=== PATIENT | male | born 1935 | race Caucasian/White ===

== ENCOUNTER 2018-03-07 15:42 | Inpatient (IN) | payer MEDICARE ==
[~2018-03-07] VITALS: Ht 167.6 cm; Wt 60.3 kg
[~2018-03-07 15:42] MED LIST: AMLO10TA4 PO; ASPI81TA52 PO; CLOP75TA35 PO; IBUP-1984 PO; PRAV40TA3 PO
[2018-03-07] MEDS ORDERED: aspirin 81mg tab.chew PO ONE (16:15)
[2018-03-07] MEDS ORDERED: normal saline 1000ML IV soln IVB ONE (16:15)
[2018-03-07] MEDS ORDERED: nitroGLYCERIN 0.4mg/hour patch TD ONE (16:15)
[2018-03-07 16:42] LABS: BASOPHILS % (AUTO) 0.4 % (0-1); EOSINOPHILS # (AUTO) 0.2 X10'3 (0-0.9); EOSINOPHILS % (AUTO) 1.9 % (0-6); HEMATOCRIT 42.1 % (42.0-52.0); HEMOGLOBIN 13.7 g/dl (14.0-17.9); LYMPHOCYTES # (AUTO) 1.2 X10'3 (1.1-4.8); MEAN CORPUSCULAR HEMOGLOBIN 29.7 PG (27.0-31.0); MEAN CORPUSCULAR HGB CONC 32.6 % (33.0-36.5); MEAN CORPUSCULAR VOLUME 91.2 FL (78-98); MEAN PLATELET VOLUME 7.4 FL (7.4-10.4); MONOCYTES # (AUTO) 0.3 X10'3 (0-0.9); MONOCYTES % (AUTO) 3.7 % (2-12); NEUTROPHILS # (AUTO) 6.9 X10'3 (1.8-7.7); PLATELET COUNT 270 X10'3 (140-440); RED BLOOD COUNT 4.62 X10'6 (4.70-6.10); RED CELL DISTRIBUTION WIDTH 13.9 % (11.5-14.5); WHITE BLOOD COUNT 8.6 X10'3 (4.5-11.0)
[2018-03-07 16:57] LABS: PARTIAL THROMBOPLASTIN TIME 28 SECONDS (22-32); PROTHROMBIN TIME 10.3 SECONDS (9.0-12.0)
[2018-03-07 16:58] LABS: ALANINE AMINOTRANSFERASE 18 U/L (12-78); ALBUMIN/GLOBULIN RATIO 1.1 (1.1-1.5); ALKALINE PHOSPHATASE 97 IU/L (46-116); ANION GAP 12 (8-16); ASPARTATE AMINO TRANSFERASE 16 U/L (10-37); BILIRUBIN,TOTAL 0.6 MG/DL (0.1-1.0); BLOOD UREA NITROGEN 21 MG/DL (7-18); BUN/CREATININE RATIO 18.6 (5.4-32.0); CALCIUM 8.9 MG/DL (8.5-10.1); CHLORIDE 102 MMOL/L (99-107); CREATININE 1.13 MG/DL (0.60-1.10); GLUCOSE 97 MG/DL (70-104); POTASSIUM 3.7 MMOL/L (3.5-5.1); SODIUM 141 MMOL/L (135-145); TOTAL CARBON DIOXIDE 27.5 MMOL/L (24-32); TOTAL PROTEIN 7.5 G/DL (6.4-8.2); eGFR 62 ML/MIN
[2018-03-07] MEDS ORDERED: acetaminophen 325mg tablet PO PRN (18:00)
[2018-03-07] MEDS ORDERED: morphine 4 MG/ML inj SYRINge IV PRN ×2 (18:00)
[2018-03-07] MEDS ORDERED: enoxaparin 60mg/0.6ml syringe SUBCUT STA (18:00)
[2018-03-07] MEDS ORDERED: ondansetron/PF 4mg/2ml inj IV PRN (18:00)
[2018-03-07] MEDS ORDERED: HYDROcodone/acetaminophen 5mg/325mg tablet PO PRN (18:00)
[2018-03-07] MEDS ORDERED: mag hydrox/Alum hydrox/simeth 30ml oral suspension PO PRN (18:00)
[2018-03-07] MEDS ORDERED: magnesium hydroxide 30ml (MOM) UD suspension PO PRN (18:00)
[2018-03-07] MEDS ORDERED: nitroGLYCERIN 0.4mg SUBLingual tab SL PRN (18:00)
--- NOTE | 2018-03-07 18:57 | NUR ---
REPORT CALLED TO JINA ON TELE, PT BELONGS WILL BE KEPT WITH PT.
[2018-03-07 19:00] VITALS: BP 135/56
--- NOTE | 2018-03-07 19:05 | NUR ---
Patient in room PCU 3023. I have received report from Carlos CLAUDIO and had the opportunity to ask questions and assume patient care.
[2018-03-07 19:50] LABS: HEMOGLOBIN A1C 5.7 % (4.5-6.2)
[2018-03-07 23:00] VITALS: BP 108/56
[2018-03-08] VITALS (14 sets, daily range): BP systolic 92–140; BP diastolic 47–67
[2018-03-08 05:19] LABS: BASOPHILS % (AUTO) 0.8 % (0-1); EOSINOPHILS # (AUTO) 0.2 X10'3 (0-0.9); EOSINOPHILS % (AUTO) 3.7 % (0-6); HEMATOCRIT 32.8 % (42.0-52.0); HEMOGLOBIN 11.2 g/dl (14.0-17.9); LYMPHOCYTES # (AUTO) 1.6 X10'3 (1.1-4.8); LYMPHOCYTES % (AUTO) 25.7 % (21-51); MEAN CORPUSCULAR HEMOGLOBIN 31.4 PG (27.0-31.0); MEAN CORPUSCULAR HGB CONC 34.3 % (33.0-36.5); MEAN CORPUSCULAR VOLUME 91.7 FL (78-98); MEAN PLATELET VOLUME 7.7 FL (7.4-10.4); MONOCYTES # (AUTO) 0.4 X10'3 (0-0.9); MONOCYTES % (AUTO) 5.8 % (2-12); NEUTROPHILS # (AUTO) 3.9 X10'3 (1.8-7.7); PLATELET COUNT 204 X10'3 (140-440); RED BLOOD COUNT 3.58 X10'6 (4.70-6.10); WHITE BLOOD COUNT 6.1 X10'3 (4.5-11.0)
[2018-03-08 05:23] LABS: ANION GAP 12 (8-16); BLOOD UREA NITROGEN 17 MG/DL (7-18); CALCIUM 7.9 MG/DL (8.5-10.1); CHLORIDE 105 MMOL/L (99-107); CHOL/HDL RATIO 3.5 (0.00-4.99); CHOLESTEROL 139 MG/DL (0-200); CREATININE 1.13 MG/DL (0.60-1.10); GLUCOSE 89 MG/DL (70-104); HDL CHOLESTEROL 40 MG/DL (35-60); LDL CHOLESTEROL 89 MG/DL (50-100); POTASSIUM 3.8 MMOL/L (3.5-5.1); SODIUM 142 MMOL/L (135-145); TOTAL CARBON DIOXIDE 24.9 MMOL/L (24-32); TRIGLYCERIDES 73 MG/DL (20-135); eGFR 62 ML/MIN
--- NOTE | 2018-03-08 06:24 | NUR ---
Problems reprioritized. Patient report given, questions answered & plan of care reviewed with DREW Vega.
--- NOTE | 2018-03-08 06:42 | NUR ---
Patient in room PCU 3023. I have received report from DREW MURO and had the opportunity to ask questions and assume patient care.
[2018-03-08] MEDS ORDERED: atorvastatin 20mg tablet PO SCH (08:00)
[2018-03-08] MEDS: aspirin 81mg tablet.DR PO SCH (08:25)
[2018-03-08] MEDS ORDERED: LIDOcaine 1% (10mg/ml)w/preservative injection 20ml MDV ONE (08:42)
[2018-03-08] MEDS ORDERED: iohexol 350MG/ML 100ml bottle IV ONE (08:42)
[2018-03-08] MEDS ORDERED: midazolam 2 mg/2 ml injection ONE (09:03)
[2018-03-08] MEDS ORDERED: LIDOcaine 1% w/EPI 1:100,000 30ml vial (MDV) ONE (09:18)
[2018-03-08] MEDS ORDERED: fentaNYL/PF 50MCG/1 ML 2ML syringe ONE (09:21)
[2018-03-08] MEDS ORDERED: dextrose 50%-water 50ml dispensing syringe IV PRN (10:45)
[2018-03-08] MEDS ORDERED: MESSAGE TO NURSING PO ONE ×4 (10:45)
--- NOTE | 2018-03-08 10:54 | NUR ---
PAGED RT : 0000Y, HAVE 2 ORDERS TO PAGE RT R/T PENDING CABG. MARILYN [id number]. TY
--- NOTE | 2018-03-08 10:57 | NUR ---
ATTEMPT TO PAGE MENDED HEARTS FOR CONS. NO PAGER AVAILABLE, ANSON WILSON RN STATES"THEY ROUND EVERY DAY. WILL SEE HIM TOMORROW.
[2018-03-08] MEDS ORDERED: nitroGLYCERIN-Tridil 50MG/D5W 250 ML IV PRN (11:20)
[2018-03-08 12:13] LABS: HEMATOCRIT 36.2 % (42.0-52.0); HEMOGLOBIN 12.2 g/dl (14.0-17.9); MEAN CORPUSCULAR HEMOGLOBIN 30.8 PG (27.0-31.0); MEAN CORPUSCULAR HGB CONC 33.8 % (33.0-36.5); MEAN CORPUSCULAR VOLUME 91.3 FL (78-98); MEAN PLATELET VOLUME 7.4 FL (7.4-10.4); PLATELET COUNT 228 X10'3 (140-440); RED BLOOD COUNT 3.97 X10'6 (4.70-6.10); WHITE BLOOD COUNT 5.7 X10'3 (4.5-11.0)
[2018-03-08 12:14] LABS: ALBUMIN 3.2 G/DL (3.4-5.0); ANION GAP 12 (8-16); BLOOD UREA NITROGEN 15 MG/DL (7-18); BUN/CREATININE RATIO 13.8 (5.4-32.0); CALCIUM 7.9 MG/DL (8.5-10.1); CHLORIDE 104 MMOL/L (99-107); CREATININE 1.09 MG/DL (0.60-1.10); GLUCOSE 90 MG/DL (70-104); POTASSIUM 3.6 MMOL/L (3.5-5.1); SODIUM 140 MMOL/L (135-145); TOTAL CARBON DIOXIDE 23.6 MMOL/L (24-32); eGFR 65 ML/MIN
[2018-03-08 12:24] LABS: INR 1.1 INR; PARTIAL THROMBOPLASTIN TIME 30 SECONDS (22-32); PROTHROMBIN TIME 10.9 SECONDS (9.0-12.0)
--- NOTE | 2018-03-08 12:38 | NUR ---
RECEIEVED FROM [facility]IA [employer] ANT 1000. BILAT GROIN DRESSING CDI WITH OUT SX OF HEMATOMA OR HEMORRHAGE. VS STABLE. PEDAL PULSES PALPABLE. DENIES PAIN, SOB, DIZZINESS. GROINS CHECK EVERY 15 MINUTES.
[2018-03-08 16:51] LABS: ABG BASE EXCESS -0.7 mmol/L (-2.0-3.0); ABG HCO3 22.7 mmol/L (22.0-26.0); ABG OXYGEN SATURATION 94.4 % (95-98); ABG PCO2 (T) 33.2 mmHg (35.0-48.0); ABG PH (T) 7.452 (7.350-7.450); ABG PO2 (T) 69.3 mmHg (83-108); FCOHb 0.3 % (0.5-1.5); FMetHb 0.2 % (0.3-1.12); FO2Hb 93.9 % (94-100); TOTAL HEMOGLOBIN 11.8 G/dl (14.0-18.0)
[2018-03-08] MEDS ORDERED: albuterol 2.5 MG/3 ML nebule ONE (17:01)
[2018-03-08] MEDS ORDERED: albuterol 2.5 MG/3 ML nebule NEB ONE (17:01)
--- NOTE | 2018-03-08 17:07 | NUR ---
PAGED VASCULAR, RE: NEED ARTERY/VEIN MAPPING.
--- NOTE | 2018-03-08 18:00 | NUR ---
Patient in room PCU 3023. I have received report from DREW Vega and had the opportunity to ask questions and assume patient care.
--- NOTE | 2018-03-08 18:39 | NUR ---
Problems reprioritized. Patient report given, questions answered & plan of care reviewed with DREW MURO.
[2018-03-09] VITALS (11 sets, daily range): BP systolic 104–143; BP diastolic 46–65
[2018-03-09 04:59] LABS: ALBUMIN 2.9 G/DL (3.4-5.0); ANION GAP 9 (8-16); BLOOD UREA NITROGEN 15 MG/DL (7-18); BUN/CREATININE RATIO 12.3 (5.4-32.0); CALCIUM 7.6 MG/DL (8.5-10.1); CHLORIDE 106 MMOL/L (99-107); CREATININE 1.22 MG/DL (0.60-1.10); GLUCOSE 96 MG/DL (70-104); POTASSIUM 3.6 MMOL/L (3.5-5.1); SODIUM 139 MMOL/L (135-145); TOTAL CARBON DIOXIDE 23.9 MMOL/L (24-32); eGFR 57 ML/MIN
[2018-03-09 05:06] LABS: BASOPHILS % (AUTO) 0.5 % (0-1); EOSINOPHILS # (AUTO) 0.3 X10'3 (0-0.9); EOSINOPHILS % (AUTO) 4.3 % (0-6); HEMATOCRIT 31.4 % (42.0-52.0); HEMOGLOBIN 10.9 g/dl (14.0-17.9); LYMPHOCYTES # (AUTO) 1.5 X10'3 (1.1-4.8); LYMPHOCYTES % (AUTO) 21.3 % (21-51); MEAN CORPUSCULAR HEMOGLOBIN 31.8 PG (27.0-31.0); MEAN CORPUSCULAR HGB CONC 34.7 % (33.0-36.5); MEAN CORPUSCULAR VOLUME 91.6 FL (78-98); MEAN PLATELET VOLUME 7.7 FL (7.4-10.4); MONOCYTES # (AUTO) 0.4 X10'3 (0-0.9); MONOCYTES % (AUTO) 5.5 % (2-12); NEUTROPHILS % (AUTO) 68.4 % (42-75); PLATELET COUNT 207 X10'3 (140-440); RED BLOOD COUNT 3.42 X10'6 (4.70-6.10); RED CELL DISTRIBUTION WIDTH 13.9 % (11.5-14.5); WHITE BLOOD COUNT 7.2 X10'3 (4.5-11.0)
[2018-03-09] MEDS ORDERED: vancomycin/NS 1 GM ADD-VANTAGE 250 ML IV ONE (05:30)
[2018-03-09] MEDS ORDERED: cefazolin/dext.iso 2gm/50ml 50 ML IV ONE (05:30)
[2018-03-09] MEDS ORDERED: mupirocin 2% ointment 22GM NS SCH (05:30)
[2018-03-09] MEDS ORDERED: insulin glargine (Lantus) pen - multi-dose SQ PRN (05:30)
[2018-03-09] MEDS ORDERED: insulin regular, human 100 UNIT in normal saline 100ml IV soln 100 ML IV SCH ×2 (05:30)
--- NOTE | 2018-03-09 06:20 | NUR ---
Patient in room PCU 3023. I have received report from Mackenzie RUSSELL and had the opportunity to ask questions and assume patient care. Pt is on nitro drip 10 mcg/min and on bedside mobile., vital signs are stable and pt denies chest pain at this time. Will continue to monitor.
[2018-03-09 06:28] LABS: INR 1.1 INR; PROTHROMBIN TIME 10.7 SECONDS (9.0-12.0)
--- NOTE | 2018-03-09 06:44 | NUR ---
Problems reprioritized. Patient report given, questions answered & plan of care reviewed with DREW Roberts.
[2018-03-09] MEDS: aspirin 81mg tablet.DR PO SCH (08:16)
[2018-03-09] MEDS ORDERED: insulin Lispro (HumaLOG) vial - multi-dose SQ SCH (09:00)
[2018-03-09] MEDS ORDERED: MESSAGE TO NURSING PO ONE (10:00)
[2018-03-09] MEDS ORDERED: ringers solution, lacted 1,000 ML IV ONE (17:17)
--- NOTE | 2018-03-09 18:22 | NUR ---
Problems reprioritized. Patient report given, questions answered & plan of care reviewed with Seferino RUSSELL.
--- NOTE | 2018-03-09 19:00 | NUR ---
Patient in room PCU 3023. I have received report from Alejandra RUSSELL and had the opportunity to ask questions and assume patient care.
[2018-03-09] MEDS: metoprolol tartrate 12.5mg (1/2 tablet) PO SCH ×2 (19:48→20:00)
[2018-03-09] MEDS: mupirocin 2% nasal ointment 1gm UD NS SCH (20:00)
--- NOTE | 2018-03-09 22:16 | NUR ---
CABG meds retimed/adjusted. Proceedure postponed.
[2018-03-10] VITALS (17 sets, daily range): BP systolic 102–130; BP diastolic 48–65
[2018-03-10] MEDS ORDERED: cefazolin/dext.iso 2gm/50ml 50 ML IV ONE (05:00)
[2018-03-10] MEDS: insulin regular, human 100 UNIT in normal saline 100ml IV soln 100 ML IV SCH ×2 (05:00)
[2018-03-10] MEDS ORDERED: vancomycin/NS 1 GM ADD-VANTAGE 250 ML IV ONE (05:00)
[2018-03-10] MEDS ORDERED: LORazepam 2 mg/ml vial IV ONE (06:00)
[2018-03-10] MEDS ORDERED: famotidine 20mg tablet PO ONE (06:00)
[2018-03-10 06:24] LABS: BASOPHILS # (AUTO) 0.1 X10'3 (0-0.2); BASOPHILS % (AUTO) 0.8 % (0-1); EOSINOPHILS # (AUTO) 0.4 X10'3 (0-0.9); EOSINOPHILS % (AUTO) 6.1 % (0-6); HEMATOCRIT 37.3 % (42.0-52.0); HEMOGLOBIN 12.7 g/dl (14.0-17.9); LYMPHOCYTES # (AUTO) 1.6 X10'3 (1.1-4.8); LYMPHOCYTES % (AUTO) 26.2 % (21-51); MEAN CORPUSCULAR HEMOGLOBIN 31.1 PG (27.0-31.0); MEAN CORPUSCULAR HGB CONC 34.1 % (33.0-36.5); MEAN CORPUSCULAR VOLUME 91.3 FL (78-98); MEAN PLATELET VOLUME 7.7 FL (7.4-10.4); MONOCYTES # (AUTO) 0.4 X10'3 (0-0.9); MONOCYTES % (AUTO) 6.3 % (2-12); NEUTROPHILS # (AUTO) 3.8 X10'3 (1.8-7.7); NEUTROPHILS % (AUTO) 60.6 % (42-75); PLATELET COUNT 223 X10'3 (140-440); RED BLOOD COUNT 4.09 X10'6 (4.70-6.10); RED CELL DISTRIBUTION WIDTH 13.5 % (11.5-14.5); WHITE BLOOD COUNT 6.3 X10'3 (4.5-11.0)
--- NOTE | 2018-03-10 06:28 | NUR ---
Problems reprioritized. Patient report given, questions answered & plan of care reviewed with Alejandra RUSSELL.
[2018-03-10 06:38] LABS: ALBUMIN 3.2 G/DL (3.4-5.0); ANION GAP 11 (8-16); BLOOD UREA NITROGEN 16 MG/DL (7-18); BUN/CREATININE RATIO 16.3 (5.4-32.0); CALCIUM 8.1 MG/DL (8.5-10.1); CHLORIDE 105 MMOL/L (99-107); CREATININE 0.98 MG/DL (0.60-1.10); GLUCOSE 94 MG/DL (70-104); POTASSIUM 3.6 MMOL/L (3.5-5.1); SODIUM 138 MMOL/L (135-145); TOTAL CARBON DIOXIDE 21.8 MMOL/L (24-32); eGFR 73 ML/MIN
[2018-03-10] MEDS: metoprolol tartrate 12.5mg (1/2 tablet) PO SCH (06:42)
[2018-03-10] MEDS ORDERED: protamine sulf. 10mg/ml inj. IV ONE (06:43)
[2018-03-10] MEDS ORDERED: DOPamine/D5W 400mg/250ml bag IV ONE (06:43)
[2018-03-10] MEDS: mupirocin 2% nasal ointment 1gm UD NS SCH ×2 (06:43→21:48)
[2018-03-10] MEDS ORDERED: nitroGLYCERIN in D5W 50mg/250ml (Tridil) infusion IV ONE (06:43)
[2018-03-10] MEDS ORDERED: sevoflurane 250ml liquid IH ONE (06:43)
[2018-03-10] MEDS ORDERED: aminocaproic acid 250 MG/1 ML inj. ONE ×2 (06:43→09:00)
--- NOTE | 2018-03-10 06:48 | NUR ---
Patient in room PCU 3023. I have received report from Seferino RUSSELL and had the opportunity to ask questions and assume patient care. Pt just went to OR.
[2018-03-10] MEDS ORDERED: MIDAZolam 1mg/ml 10ml vial ONE (06:50)
[2018-03-10] MEDS ORDERED: SUfentanil 50mcg/ml 1ml amp IV ONE (06:51)
[2018-03-10] MEDS ORDERED: fentaNYL /PF 50mcg/ml 5ml ampule ONE ×2 (06:52→08:25)
[2018-03-10] MEDS ORDERED: pancuronium br 1mg/ml inj IV ONE (06:52)
[2018-03-10] MEDS ORDERED: etomidate 2mg/ml inj. ONE (06:53)
[2018-03-10] MEDS ORDERED: albumin (Human) 5% 250ml 250 ML IV ONE ×3 (07:18→12:20)
[2018-03-10 07:30] LABS: ABG BASE EXCESS -4.3 mmol/L (-2.0-3.0); ABG HCO3 20.6 mmol/L (22.0-26.0); ABG OXYGEN SATURATION 99.2 % (95-98); ABG PCO2 36.8 mmHg (35.0-45.0); ABG PH 7.365 (7.350-7.450); ABG PO2 366.3 mmHg (60.0-100.0); CL (ABG) 109 mmol/L (99-107); FCOHb 0.1 % (0.5-1.5); FMetHb 0.4 % (0.3-1.12); FO2Hb 98.7 % (94-100); GLUCOSE (ABG) 102 mg/dl (70-105); K (ABG) 3.6 mmol/L (3.3-5.1); NA (ABG) 135 mmol/L (135-145); TOTAL HEMOGLOBIN 11.2 G/dl (14.0-18.0)
[2018-03-10] MEDS ORDERED: heparin 10,000 units/1 ML INJ IR ONE (07:59)
[2018-03-10] MEDS ORDERED: insulin glargine (Lantus) pen - multi-dose SQ PRN (08:00)
[2018-03-10] MEDS: aspirin 81mg tablet.DR PO SCH (08:00)
[2018-03-10] MEDS ORDERED: papaverine 30 mg/ml 2ml inj. IA ONE (08:00)
[2018-03-10 08:31] LABS: ACT @ 1.70 U 329 SEC (193-297); ACT @ 2.84 U 491 SEC (260-420); BASELINE ACT 151 SEC (101-148); PATIENT WEIGHT 61.0k KG
[2018-03-10 08:31] LABS: ABG BASE EXCESS VENOUS -6.4 mmol/L; ABG HCO3 VENOUS 21.5 mmol/L; ABG PCO2 VENOUS 54.5 mmHg; ABG PO2 VENOUS 57.3 mmHg; CL (ABG) 108 mmol/L (99-107); FCOHb VENOUS 0.3 %; FHHb VENOUS 14.8 %; FMetHb VENOUS 0.1 %; FO2Hb VENOUS 84.8 %; GLUCOSE (ABG) 107 mg/dl (70-105); IONIZED CA (ABG) 1.09 mmol/L (1.03-1.32); K (ABG) 3.8 mmol/L (3.3-5.1); NA (ABG) 134 mmol/L (135-145); TOTAL HEMOGLOBIN 10.1 G/dl (14.0-18.0)
[2018-03-10 08:56] LABS: ABG BASE EXCESS -2.7 mmol/L (-2.0-3.0); ABG HCO3 23.3 mmol/L (22.0-26.0); ABG OXYGEN SATURATION 99.6 % (95-98); ABG PCO2 46.1 mmHg (35.0-45.0); ABG PH 7.322 (7.350-7.450); ABG PO2 563.6 mmHg (60.0-100.0); CL (ABG) 107 mmol/L (99-107); FCOHb 0.6 % (0.5-1.5); FMetHb 0.1 % (0.3-1.12); FO2Hb 98.9 % (94-100); GLUCOSE (ABG) 118 mg/dl (70-105); K (ABG) 4.2 mmol/L (3.3-5.1); NA (ABG) 132 mmol/L (135-145); TOTAL HEMOGLOBIN 8.8 G/dl (14.0-18.0)
[2018-03-10] MEDS ORDERED: LIDOcaine 2% (20 mg/ml) 5ml cardiac syringe ONE (09:00)
[2018-03-10] MEDS ORDERED: calcium chloride 100 MG/1 ML inj IV ONE (09:00)
[2018-03-10] MEDS ORDERED: albumin 25% 50mL bottle IV ONE (09:00)
[2018-03-10] MEDS ORDERED: heparin 1,000 units/ml 10ml inj ONE ×2 (09:00)
[2018-03-10] MEDS ORDERED: magnesium sulf 1 GM/2 ML ONE (09:00)
[2018-03-10] MEDS ORDERED: papaverine 30 mg/ml 2ml inj. ONE (09:00)
[2018-03-10] MEDS ORDERED: methylPREDNISolone sod. succ. 500mg inj ONE (09:00)
[2018-03-10] MEDS ORDERED: sodium bicarbonate (8.4%) 1 mEq/ml syringe ONE (09:00)
[2018-03-10] MEDS ORDERED: potassium Cl 2 mEq/ml inj IV ONE (09:00)
[2018-03-10 09:16] LABS: ABG HCO3 VENOUS 20.8 mmol/L; ABG PCO2 VENOUS 41.6 mmHg; ABG PO2 VENOUS 119.2 mmHg; CL (ABG) 107 mmol/L (99-107); FCOHb VENOUS 0.2 %; FHHb VENOUS 2.4 %; FMetHb VENOUS 0.2 %; FO2Hb VENOUS 97.2 %; GLUCOSE (ABG) 135 mg/dl (70-105); IONIZED CA (ABG) 1.04 mmol/L (1.03-1.32); K (ABG) 5.2 mmol/L (3.3-5.1); NA (ABG) 132 mmol/L (135-145); TOTAL HEMOGLOBIN 9.2 G/dl (14.0-18.0)
[2018-03-10 09:26] LABS: ABG BASE EXCESS -0.4 mmol/L (-2.0-3.0); ABG OXYGEN SATURATION 99.4 % (95-98); ABG PCO2 37.9 mmHg (35.0-45.0); ABG PH 7.419 (7.350-7.450); ABG PO2 576.1 mmHg (60.0-100.0); CL (ABG) 107 mmol/L (99-107); FCOHb 0.6 % (0.5-1.5); FMetHb 0.2 % (0.3-1.12); FO2Hb 98.6 % (94-100); GLUCOSE (ABG) 134 mg/dl (70-105); K (ABG) 5.1 mmol/L (3.3-5.1); NA (ABG) 135 mmol/L (135-145); TOTAL HEMOGLOBIN 8.8 G/dl (14.0-18.0)
[2018-03-10 10:05] LABS: ABG BASE EXCESS -1.5 mmol/L (-2.0-3.0); ABG HCO3 21.9 mmol/L (22.0-26.0); ABG OXYGEN SATURATION 99.2 % (95-98); ABG PCO2 31.4 mmHg (35.0-45.0); ABG PH 7.461 (7.350-7.450); ABG PO2 394.6 mmHg (60.0-100.0); CL (ABG) 108 mmol/L (99-107); FCOHb 0.1 % (0.5-1.5); FMetHb 0.3 % (0.3-1.12); FO2Hb 98.8 % (94-100); GLUCOSE (ABG) 153 mg/dl (70-105); IONIZED CA (ABG) 1.01 mmol/L (1.03-1.32); K (ABG) 5.3 mmol/L (3.3-5.1); NA (ABG) 134 mmol/L (135-145)
[2018-03-10 10:46] LABS: ABG BASE EXCESS -0.8 mmol/L (-2.0-3.0); ABG HCO3 23.8 mmol/L (22.0-26.0); ABG PCO2 38.6 mmHg (35.0-45.0); ABG PH 7.407 (7.350-7.450); ABG PO2 359.5 mmHg (60.0-100.0); CL (ABG) 103 mmol/L (99-107); FCOHb 0.4 % (0.5-1.5); FMetHb 0.4 % (0.3-1.12); FO2Hb 98.2 % (94-100); GLUCOSE (ABG) 159 mg/dl (70-105); IONIZED CA (ABG) 1.01 mmol/L (1.03-1.32); K (ABG) 5.3 mmol/L (3.3-5.1); NA (ABG) 130 mmol/L (135-145); TOTAL HEMOGLOBIN 8.1 G/dl (14.0-18.0)
[2018-03-10 11:16] LABS: ABG BASE EXCESS VENOUS -2.2 mmol/L; ABG HCO3 VENOUS 24.4 mmol/L; ABG PCO2 VENOUS 50.9 mmHg; ABG PO2 VENOUS 66.1 mmHg; CL (ABG) 108 mmol/L (99-107); FCOHb VENOUS 0.6 %; FMetHb VENOUS 0.3 %; FO2Hb VENOUS 89.1 %; GLUCOSE (ABG) 169 mg/dl (70-105); IONIZED CA (ABG) 1.07 mmol/L (1.03-1.32); K (ABG) 4.8 mmol/L (3.3-5.1); NA (ABG) 134 mmol/L (135-145); TOTAL HEMOGLOBIN 8.9 G/dl (14.0-18.0)
[2018-03-10] MEDS ORDERED: ePHEDrine 50MG/ML INJ. ONE (11:17)
[2018-03-10] MEDS ORDERED: nitroGLYCERIN-Tridil 50MG/D5W 250 ML IV PRN (11:47)
[2018-03-10] MEDS ORDERED: DOPamine 400mg/D5W 250ml 250 ML IV PRN (11:47)
[2018-03-10] MEDS ORDERED: niCARDipine-NS 40mg/200ml IVPB 200 ML IV PRN (11:47)
[2018-03-10] MEDS ORDERED: sodium phosphate inj. 15 MMOL in dextrose 5%-water 150 ML IV PRN (11:50)
[2018-03-10] MEDS ORDERED: sodium phosphate inj. 30 MMOL in dextrose 5%-water 250 ML IV PRN (11:50)
[2018-03-10] MEDS ORDERED: potassium Cl 20mEq/100mL bag 100 ML IV PRN (11:50)
[2018-03-10] MEDS ORDERED: acetaminophen 325mg tablet PO PRN (11:50)
[2018-03-10] MEDS ORDERED: magnesium 4gm in 100ml NS 100 ML IV PRN (11:50)
[2018-03-10] MEDS ORDERED: metoclopramide 5 mg/ml inj IV PRN (11:50)
[2018-03-10] MEDS ORDERED: ondansetron/PF 4mg/2ml inj IV PRN (11:50)
[2018-03-10] MEDS ORDERED: pantoprazole 40 MG vial IV ONE (11:50)
[2018-03-10] MEDS ORDERED: albumin (Human) 5% 250ml 250 ML IV PRN (11:50)
[2018-03-10] MEDS ORDERED: Neutra Phos packet PO PRN (11:50)
[2018-03-10] MEDS ORDERED: dextrose 50%-water 50ml dispensing syringe IV PRN (11:50)
[2018-03-10] MEDS ORDERED: HYDROcodone/acetaminophen 10/325mg tab PO PRN (11:50)
[2018-03-10] MEDS ORDERED: insulin regular, human inj. 100 UNITS in normal saline 100ml IV soln 100 ML IV SCH ×2 (11:50)
[2018-03-10] MEDS ORDERED: normal saline 250ml IV soln 250 ML IV PRN (11:50)
--- NOTE | 2018-03-10 12:00 | NUR ---
Received to room 2039, accompanied by Dr. Ramirez and Dr. Seth and surgical crew. Placed on ventilator, to cardiac nurse specialist, arterial line and PA line pressure monitored. Chest tubes to suction at 20 cm. Jimenez cath to gravity drainage. Dressings are dry and intact. See assessment record. All vasoactive drugs are infusing via central line.
[2018-03-10 12:15] LABS: ABG BASE EXCESS -4.9 mmol/L (-2.0-3.0); ABG HCO3 22.2 mmol/L (22.0-26.0); ABG OXYGEN SATURATION 98.4 % (95-98); ABG PCO2 (T) 47.7 mmHg (35.0-48.0); FCOHb 0.3 % (0.5-1.5); FMetHb 0.3 % (0.3-1.12); FO2Hb 97.8 % (94-100); MINUTE VOLUME 6 L/min; PATIENT TEMPERATURE 35.9; PEEP 5 cm H2O; RESPIRATORY RATE 9 b/min; TIDAL VOLUME 500 mL; TOTAL HEMOGLOBIN 10.9 G/dl (14.0-18.0)
[2018-03-10 12:21] LABS: ACTIVATED CLOTTING TIME 125 SEC (101-148)
[2018-03-10 12:23] LABS: BASOPHILS # (AUTO) 0.1 X10'3 (0-0.2); BASOPHILS % (AUTO) 0.3 % (0-1); EOSINOPHILS # (AUTO) 0.1 X10'3 (0-0.9); EOSINOPHILS % (AUTO) 0.7 % (0-6); HEMATOCRIT 29.7 % (42.0-52.0); HEMOGLOBIN 10.1 g/dl (14.0-17.9); LYMPHOCYTES % (AUTO) 5.3 % (21-51); MEAN CORPUSCULAR HEMOGLOBIN 31.1 PG (27.0-31.0); MEAN CORPUSCULAR HGB CONC 33.9 % (33.0-36.5); MEAN CORPUSCULAR VOLUME 91.9 FL (78-98); MEAN PLATELET VOLUME 7.6 FL (7.4-10.4); MONOCYTES # (AUTO) 0.6 X10'3 (0-0.9); MONOCYTES % (AUTO) 3.2 % (2-12); NEUTROPHILS # (AUTO) 16.2 X10'3 (1.8-7.7); NEUTROPHILS % (AUTO) 90.5 % (42-75); PLATELET COUNT 164 X10'3 (140-440); RED BLOOD COUNT 3.23 X10'6 (4.70-6.10); RED CELL DISTRIBUTION WIDTH 13.7 % (11.5-14.5)
[2018-03-10 12:41] LABS: ALANINE AMINOTRANSFERASE 21 U/L (12-78); ALBUMIN 3.4 G/DL (3.4-5.0); ALBUMIN/GLOBULIN RATIO 1.7 (1.1-1.5); ANION GAP 13 (8-16); ASPARTATE AMINO TRANSFERASE 36 U/L (10-37); BILIRUBIN,TOTAL 0.9 MG/DL (0.1-1.0); BLOOD UREA NITROGEN 14 MG/DL (7-18); BUN/CREATININE RATIO 13.6 (5.4-32.0); CALCIUM 7.1 MG/DL (8.5-10.1); CHLORIDE 108 MMOL/L (99-107); CREATININE 1.03 MG/DL (0.60-1.10); GLUCOSE 171 MG/DL (70-104); MAGNESIUM 3.6 MG/DL (1.5-2.4); PHOSPHORUS 2.3 MG/DL (2.3-4.5); POTASSIUM 4.3 MMOL/L (3.5-5.1); SODIUM 143 MMOL/L (135-145); TOTAL CARBON DIOXIDE 22.5 MMOL/L (24-32); TOTAL PROTEIN 5.4 G/DL (6.4-8.2); eGFR 69 ML/MIN
[2018-03-10 12:42] LABS: ALKALINE PHOSPHATASE 51 IU/L (46-116)
[2018-03-10 12:57] LABS: INR 1.2 INR; PARTIAL THROMBOPLASTIN TIME 29 SECONDS (22-32)
[2018-03-10] MEDS: sodium chloride 0.45% 1,000 ML IV SCH (12:58)
[2018-03-10] MEDS: insulin Lispro (HumaLOG) vial - multi-dose SQ SCH ×2 (13:00→15:47)
[2018-03-10] MEDS: potassium Cl 20mEq/100mL bag 100 ML IV PRN ×3 (13:29→20:21)
[2018-03-10] MEDS: morphine 4 MG/ML inj SYRINge IV PRN ×6 (14:02→22:42)
[2018-03-10] MEDS: ceFAZolin 1GM/D5W- ADD-VANTAGE 50 ML IV SCH ×2 (16:06→23:57)
--- NOTE | 2018-03-10 17:17 | NUR ---
Patient waking up and moving all extremities. Follows commands off and on, not every time. Squeezes with both hands, does not wiggle feet, but moves both feet. Still on ventilator at 40%. Pulses checked with Doppler at 1700 and noted in both dorsalis pedis bilaterally.
--- NOTE | 2018-03-10 18:30 | NUR ---
Patient in room ICU 2039. I have received report from Iveth RUSSELL and had the opportunity to ask questions and assume patient care. Pt opening eyes to voice, nods head to questioning. PA waveform dampened, repositioned to 49cm by charge master specialist. Good waveform.
--- NOTE | 2018-03-10 18:31 | NUR ---
Problems reprioritized. Patient report given, questions answered & plan of care reviewed with Apoorva RUSSELL.
[2018-03-10 18:33] LABS: BASOPHILS % (AUTO) 0 % (0-1); EOSINOPHILS % (AUTO) 0 % (0-6); HEMATOCRIT 29.2 % (42.0-52.0); HEMOGLOBIN 9.6 g/dl (14.0-17.9); LYMPHOCYTES # (AUTO) 0.4 X10'3 (1.1-4.8); LYMPHOCYTES % (AUTO) 2.8 % (21-51); MEAN CORPUSCULAR HEMOGLOBIN 30.2 PG (27.0-31.0); MEAN CORPUSCULAR HGB CONC 32.8 % (33.0-36.5); MEAN CORPUSCULAR VOLUME 92.1 FL (78-98); MEAN PLATELET VOLUME 7.8 FL (7.4-10.4); MONOCYTES # (AUTO) 0.2 X10'3 (0-0.9); MONOCYTES % (AUTO) 1.1 % (2-12); NEUTROPHILS # (AUTO) 13.5 X10'3 (1.8-7.7); NEUTROPHILS % (AUTO) 96.1 % (42-75); PLATELET COUNT 147 X10'3 (140-440); RED BLOOD COUNT 3.18 X10'6 (4.70-6.10); RED CELL DISTRIBUTION WIDTH 13.8 % (11.5-14.5); WHITE BLOOD COUNT 14.1 X10'3 (4.5-11.0)
[2018-03-10 18:48] LABS: ALBUMIN 3.6 G/DL (3.4-5.0); ANION GAP 10 (8-16); BLOOD UREA NITROGEN 15 MG/DL (7-18); BUN/CREATININE RATIO 13.4 (5.4-32.0); CALCIUM 7.4 MG/DL (8.5-10.1); CHLORIDE 111 MMOL/L (99-107); CREATININE 1.12 MG/DL (0.60-1.10); GLUCOSE 98 MG/DL (70-104); PHOSPHORUS 1.5 MG/DL (2.3-4.5); POTASSIUM 3.9 MMOL/L (3.5-5.1); SODIUM 144 MMOL/L (135-145); TOTAL CARBON DIOXIDE 22.8 MMOL/L (24-32); eGFR 63 ML/MIN
[2018-03-10] MEDS ORDERED: potassium phosphate inj 15 MMOL in normal saline 250ml IV soln 245 ML IV ONE (19:10)
[2018-03-10] MEDS: docusate sod 100mg capsule PO SCH (19:55)
[2018-03-10] MEDS: vancomycin/NS 1 GM ADD-VANTAGE 250 ML IV SCH (21:48)
[2018-03-11] VITALS (24 sets, daily range): BP systolic 94–135; BP diastolic 46–71
[2018-03-11 00:16] LABS: ABG BASE EXCESS -4.6 mmol/L (-2.0-3.0); ABG HCO3 20.3 mmol/L (22.0-26.0); ABG OXYGEN SATURATION 97.5 % (95-98); ABG PCO2 (T) 36.8 mmHg (35.0-48.0); ABG PH (T) 7.361 (7.350-7.450); ABG PO2 (T) 113.2 mmHg (83-108); FCOHb 0.3 % (0.5-1.5); FMetHb 0.1 % (0.3-1.12); FO2Hb 97.1 % (94-100); MINUTE VOLUME 8 L/min; PATIENT TEMPERATURE 37.1; PEEP 5 cm H2O; RESPIRATORY RATE (OBSERVED) 12 b/min; TOTAL HEMOGLOBIN 9.4 G/dl (14.0-18.0)
--- NOTE | 2018-03-11 00:30 | NUR ---
Extubated pt with RT after spontaneous breathing trial to 4LNC without incident.
[2018-03-11] MEDS: morphine 4 MG/ML inj SYRINge IV PRN ×2 (00:45→03:25)
[2018-03-11 02:47] LABS: BASOPHILS % (AUTO) 0 % (0-1); EOSINOPHILS % (AUTO) 0.2 % (0-6); HEMATOCRIT 26.5 % (42.0-52.0); HEMOGLOBIN 9.1 g/dl (14.0-17.9); LYMPHOCYTES # (AUTO) 0.4 X10'3 (1.1-4.8); LYMPHOCYTES % (AUTO) 3.4 % (21-51); MEAN CORPUSCULAR HEMOGLOBIN 31.6 PG (27.0-31.0); MEAN CORPUSCULAR HGB CONC 34.6 % (33.0-36.5); MEAN CORPUSCULAR VOLUME 91.3 FL (78-98); MONOCYTES # (AUTO) 0.7 X10'3 (0-0.9); MONOCYTES % (AUTO) 5.5 % (2-12); NEUTROPHILS # (AUTO) 12.1 X10'3 (1.8-7.7); NEUTROPHILS % (AUTO) 90.9 % (42-75); PLATELET COUNT 128 X10'3 (140-440); RED CELL DISTRIBUTION WIDTH 13.8 % (11.5-14.5); WHITE BLOOD COUNT 13.2 X10'3 (4.5-11.0)
[2018-03-11 02:56] LABS: ALANINE AMINOTRANSFERASE 31 U/L (12-78); ALBUMIN 3.5 G/DL (3.4-5.0); ALBUMIN/GLOBULIN RATIO 1.6 (1.1-1.5); ALKALINE PHOSPHATASE 51 IU/L (46-116); ANION GAP 11 (8-16); ASPARTATE AMINO TRANSFERASE 97 U/L (10-37); BILIRUBIN,TOTAL 0.5 MG/DL (0.1-1.0); BLOOD UREA NITROGEN 18 MG/DL (7-18); CALCIUM 7.2 MG/DL (8.5-10.1); CHLORIDE 112 MMOL/L (99-107); GLUCOSE 112 MG/DL (70-104); MAGNESIUM 2.7 MG/DL (1.5-2.4); PHOSPHORUS 3.9 MG/DL (2.3-4.5); POTASSIUM 5.1 MMOL/L (3.5-5.1); SODIUM 144 MMOL/L (135-145); TOTAL CARBON DIOXIDE 21.2 MMOL/L (24-32); TOTAL PROTEIN 5.7 G/DL (6.4-8.2); eGFR 58 ML/MIN
[2018-03-11 03:01] LABS: INR 1.1 INR; PARTIAL THROMBOPLASTIN TIME 28 SECONDS (22-32); PROTHROMBIN TIME 10.7 SECONDS (9.0-12.0)
--- NOTE | 2018-03-11 04:42 | NUR ---
Pt appears to be sleeping, morphine given earlier for a pain level of 7/10 per patient statement. Will continue to monitor closely.
--- NOTE | 2018-03-11 05:15 | NUR ---
Assisted patient to sitting position at the side of the bed with 2 person assist. Tolerated sitting well but was not strong enough to stand up yet. Returned to supine position without incident, bony prominences floated with pillows.
--- NOTE | 2018-03-11 06:31 | NUR ---
AM chest xray reviewed, PA catheter D/C'd. Problems reprioritized. Patient report given, questions answered & plan of care reviewed with Iveht RUSSELL.
[2018-03-11] MEDS ORDERED: aspirin 325mg tablet, delayed-release (Ecotrin) PO SCH ×2 (08:00)
[2018-03-11] MEDS: insulin Lispro (HumaLOG) vial - multi-dose SQ SCH ×3 (09:00→13:25)
[2018-03-11] MEDS: ceFAZolin 1GM/D5W- ADD-VANTAGE 50 ML IV SCH ×3 (09:31→23:00)
[2018-03-11] MEDS: mupirocin 2% nasal ointment 1gm UD NS SCH ×2 (09:31→19:18)
[2018-03-11] MEDS: docusate sod 100mg capsule PO SCH ×2 (09:31→19:18)
[2018-03-11] MEDS: vancomycin/NS 1 GM ADD-VANTAGE 250 ML IV SCH ×2 (09:31→20:18)
[2018-03-11] MEDS: metoprolol tartrate 12.5mg (1/2 tablet) PO SCH ×2 (09:31→19:17)
[2018-03-11] MEDS ORDERED: ipratropium/albuterol 3ml nebule NEB PRN (12:40)
[2018-03-11] MEDS: ipratropium/albuterol 3ml nebule NEB SCH ×2 (12:43→20:14)
[2018-03-11] MEDS: insulin regular, human 100 UNIT in normal saline 100ml IV soln 100 ML IV SCH ×2 (13:25)
[2018-03-11] MEDS: HYDROcodone/acetaminophen 10/325mg tab PO PRN (18:05)
--- NOTE | 2018-03-11 18:18 | NUR ---
Problems reprioritized. Patient report given, questions answered & plan of care reviewed with Alejandra RUSSELL.
--- NOTE | 2018-03-11 18:19 | NUR ---
Patient in room ICU 2039. I have received report from DREW Lazaro, and had the opportunity to ask questions and assume patient care.
--- NOTE | 2018-03-11 18:40 | NUR ---
Pt sitting upright in bed watching TV. Pt reports 5/10 sternal CP, but declines pain medication. Pt received pain medication within last hour. Pt offered dinner, pt states he is not hungry and refused any substitutions. No requests at this time, will continue to monitor.
--- NOTE | 2018-03-11 19:00 | NUR ---
Pt's [id number] arrived to visit and brought new batteries for hearing aids. Pt now able to receive staff education. Pt using arms to reposition self while sitting up in the chair. Pt instructed to not use arms due to sternotomy incision. Pt verbalizes understanding.
--- NOTE | 2018-03-11 19:30 | NUR ---
Ambulated in [place] with 2-person assistance, tolerated activity fairly. Pt reported left leg weakness toward end of walk. Assisted to bed w/o issue.
--- NOTE | 2018-03-11 23:00 | NUR ---
Pt repositioning himself using arms. Pt instructed to not use his arms and reminded of sternotomy incision. Pt verbalizes understanding, repositioning accomplished with staff assistance. No further needs or requests at this time.
[2018-03-12] VITALS (27 sets, daily range): BP systolic 92–141; BP diastolic 49–74
--- NOTE | 2018-03-12 01:35 | NUR ---
Pt reports SOB. Pt repositioned and HOB elevated. Pt also c/o pain, states that it "hurts all over, head, neck, back, belly, everywhere". Pt agreeable to use PRN pain medication. Expiratory wheezes noted to lower bases. Pt having congested, non-productive cough. Encouraged to use IS and flutter valve. TV 250 mL with IS, pt states unable to use IS and able to use flutter valve poorly. Pt required frequent reminders to use pillow to splint sternotomy incision, pt verbalizes understanding and uses the pillow for a short period of time before coughing without pillow.
[2018-03-12] MEDS: HYDROcodone/acetaminophen 10/325mg tab PO PRN ×2 (01:55→07:28)
[2018-03-12] MEDS: morphine 4 MG/ML inj SYRINge IV PRN (01:56)
[2018-03-12] MEDS: ipratropium/albuterol 3ml nebule NEB SCH ×4 (02:10→20:26)
--- NOTE | 2018-03-12 03:00 | NUR ---
Dr. Ramirez contacted with assessment findings. Verbal order given for Lasix 40 mg IV x1.
[2018-03-12 03:03] LABS: BASOPHILS % (AUTO) 0.1 % (0-1); EOSINOPHILS % (AUTO) 0 % (0-6); HEMATOCRIT 24.4 % (42.0-52.0); LYMPHOCYTES % (AUTO) 8.1 % (21-51); MEAN CORPUSCULAR HEMOGLOBIN 30.1 PG (27.0-31.0); MEAN CORPUSCULAR HGB CONC 32.8 % (33.0-36.5); MEAN CORPUSCULAR VOLUME 91.8 FL (78-98); MEAN PLATELET VOLUME 8.6 FL (7.4-10.4); MONOCYTES # (AUTO) 0.6 X10'3 (0-0.9); MONOCYTES % (AUTO) 4.7 % (2-12); NEUTROPHILS # (AUTO) 10.4 X10'3 (1.8-7.7); NEUTROPHILS % (AUTO) 87.1 % (42-75); PLATELET COUNT 149 X10'3 (140-440); RED BLOOD COUNT 2.66 X10'6 (4.70-6.10); RED CELL DISTRIBUTION WIDTH 15.3 % (11.5-14.5); WHITE BLOOD COUNT 11.9 X10'3 (4.5-11.0)
[2018-03-12] MEDS ORDERED: furosemide 40mg/4ml inj IV ONE ×2 (03:05→20:00)
[2018-03-12 03:10] LABS: ANION GAP 12 (8-16); BLOOD UREA NITROGEN 22 MG/DL (7-18); BUN/CREATININE RATIO 17.5 (5.4-32.0); CALCIUM 7.4 MG/DL (8.5-10.1); CHLORIDE 106 MMOL/L (99-107); CREATININE 1.26 MG/DL (0.60-1.10); GLUCOSE 130 MG/DL (70-104); PHOSPHORUS 3.1 MG/DL (2.3-4.5); POTASSIUM 4.3 MMOL/L (3.5-5.1); SODIUM 139 MMOL/L (135-145); TOTAL CARBON DIOXIDE 21.4 MMOL/L (24-32); eGFR 55 ML/MIN
[2018-03-12 03:11] LABS: ALBUMIN 3.1 G/DL (3.4-5.0); MAGNESIUM 2.3 MG/DL (1.5-2.4)
[2018-03-12] MEDS: potassium Cl 20mEq/100mL bag 100 ML IV PRN (03:28)
--- NOTE | 2018-03-12 04:12 | NUR ---
Pt requesting RN, asking "What now?" Pt denies worsening pain, SOB, or other issues at this time. Pt reoriented to time, location, and situation. Pt verbalizes understanding, states that he was confused because of the curtain in his room. Pt states he will attempt to sleep now. Pt attempting to reposition self in bed with arms. Pt instructed to not use arms and to allow staff to assist with repositioning.
[2018-03-12] MEDS: magnesium 2GM in 50ml NS 50 ML IV PRN (05:34)
--- NOTE | 2018-03-12 06:31 | NUR ---
Problems reprioritized. Patient report given, questions answered & plan of care reviewed with DREW Lazaro.
[2018-03-12] MEDS: metoprolol tartrate 12.5mg (1/2 tablet) PO SCH ×2 (07:26→19:18)
[2018-03-12] MEDS: aspirin 81mg tablet.DR PO SCH (07:27)
[2018-03-12] MEDS: docusate sod 100mg capsule PO SCH ×2 (07:27→19:18)
[2018-03-12] MEDS: mupirocin 2% nasal ointment 1gm UD NS SCH (07:28)
[2018-03-12] MEDS: pantoprazole 40mg Tablet.DR PO SCH (07:28)
[2018-03-12] MEDS: insulin Lispro (HumaLOG) vial - multi-dose SQ SCH ×3 (09:00→17:53)
--- NOTE | 2018-03-12 10:30 | NUR ---
Ct removed by Dr Ramirez. Pt had no s/s of distress after this. 20cc output this am prior to removal.
[2018-03-12] MEDS: sodium chloride 0.45% 1,000 ML IV SCH (11:47)
--- NOTE | 2018-03-12 13:29 | NUR ---
Pt refused to get oob for lunch. Pt educated about the need to increase mobility to heal from ct sx.
--- NOTE | 2018-03-12 15:36 | NUR ---
Initial: Pt admitted with chest pain now s/p CABG x6. Pt seen at bedside given written and verbal protein education d/t the importance of wound healing following surgery. Pt currently on NCS diet with documented PO intake 0-25% not meeting nutrient needs. Pt endorses a low appetite however states he's been focusing on trying to eat the protein at meals. Pt agreeable to Ensure High Protein TID, MD person, d/w dietary. Pt denies food allergies, difficulties chewing/swallowing or constipation/diarrhea. No documented BM and pt unsure of when last BM was, however pt denies feelings of constipation. Pt on routine Colace. Will continue to follow and make recommendations as appropriate. Recommendations: 1) Continue with no concentrated sweets diet 2) Ensure high protein TID 3) Encourage PO intake 4) Monitor need for additional bowel care 5) Wt per rx Addendum: 03/12/18 at [address] Amended: Links added.
[2018-03-12] MEDS: lactose-reduced food (Ensure High Protein) 237ml bottle PO SCH (18:00)
[2018-03-12] MEDS: Protein Shake (high protein) 240ml (8oz) cup PO SCH (18:00)
--- NOTE | 2018-03-12 18:23 | NUR ---
Problems reprioritized. Patient report given, questions answered & plan of care reviewed with Alejandra RUSSELL.
--- NOTE | 2018-03-12 18:25 | NUR ---
Patient in room ICU 2039. I have received report from DREW Lazaro, and had the opportunity to ask questions and assume patient care.
--- NOTE | 2018-03-12 18:30 | NUR ---
Pt sitting upright in bed feeding self dinner. SpO2 sensor alarming low readings, but pleth poor and reports low quality sensor. Pt in NAD, other VSS, RR WNL. Pt denies any SOB, increased WOB, CP, or other s/s's.
--- NOTE | 2018-03-12 19:30 | NUR ---
Pt sitting upright in chair, agreeable to attempt ambulating tonight. Discussed plan to have pt cease activity and return to bed if pt developed hypotension and became symptomatic. Pt agreeable with this plan. Pt ambulated approx 50 feet with 2-person assistance, BP 82/50 and pt reports some dizziness. Pt able to ambulate steadily back to room. Assisted with repositioning in bed, BP improved and pt reports no lingering dizziness. Will continue to monitor pt.
[2018-03-12] MEDS: insulin regular, human 100 UNIT in normal saline 100ml IV soln 100 ML IV SCH ×2 (23:40)
[2018-03-13] VITALS (25 sets, daily range): BP systolic 100–140; BP diastolic 49–71
[2018-03-13] MEDS: ipratropium/albuterol 3ml nebule NEB SCH ×4 (02:14→20:23)
[2018-03-13 02:16] LABS: BASOPHILS % (AUTO) 0.3 % (0-1); EOSINOPHILS % (AUTO) 0 % (0-6); HEMATOCRIT 28.5 % (42.0-52.0); HEMOGLOBIN 9.5 g/dl (14.0-17.9); LYMPHOCYTES # (AUTO) 1.1 X10'3 (1.1-4.8); LYMPHOCYTES % (AUTO) 11.3 % (21-51); MEAN CORPUSCULAR HEMOGLOBIN 29.8 PG (27.0-31.0); MEAN CORPUSCULAR HGB CONC 33.2 % (33.0-36.5); MEAN CORPUSCULAR VOLUME 89.6 FL (78-98); MEAN PLATELET VOLUME 8.2 FL (7.4-10.4); MONOCYTES # (AUTO) 0.4 X10'3 (0-0.9); MONOCYTES % (AUTO) 3.7 % (2-12); NEUTROPHILS # (AUTO) 8.1 X10'3 (1.8-7.7); NEUTROPHILS % (AUTO) 84.7 % (42-75); PLATELET COUNT 156 X10'3 (140-440); RED BLOOD COUNT 3.18 X10'6 (4.70-6.10); RED CELL DISTRIBUTION WIDTH 16.2 % (11.5-14.5); WHITE BLOOD COUNT 9.6 X10'3 (4.5-11.0)
[2018-03-13 02:18] LABS: ALBUMIN 2.9 G/DL (3.4-5.0); ANION GAP 13 (8-16); BLOOD UREA NITROGEN 24 MG/DL (7-18); BUN/CREATININE RATIO 20.2 (5.4-32.0); CALCIUM 7.5 MG/DL (8.5-10.1); CHLORIDE 101 MMOL/L (99-107); CREATININE 1.19 MG/DL (0.60-1.10); GLUCOSE 109 MG/DL (70-104); MAGNESIUM 2.1 MG/DL (1.5-2.4); PHOSPHORUS 3.3 MG/DL (2.3-4.5); POTASSIUM 3.6 MMOL/L (3.5-5.1); SODIUM 138 MMOL/L (135-145); TOTAL CARBON DIOXIDE 23.7 MMOL/L (24-32); eGFR 59 ML/MIN
[2018-03-13] MEDS: potassium Cl 20mEq/100mL bag 100 ML IV PRN ×2 (02:34→04:25)
--- NOTE | 2018-03-13 03:25 | NUR ---
Pt having audible gurgling in lung and frequent small coughs. Pt encouraged to use IS and flutter valve. Pt refused, states that he "uses those machines during the day time". Pt educated on IS and flutter valve helping to keep lungs open and helping to remove secretions. Pt states that he "will just do it in the morning". Pt agreeable to splinting chest and coughing, able to expectorate small amount of thick, creamy-yellow secretions and relieve gurgling.
[2018-03-13] MEDS: morphine 4 MG/ML inj SYRINge IV PRN (03:26)
[2018-03-13] MEDS: magnesium 2GM in 50ml NS 50 ML IV PRN (05:01)
--- NOTE | 2018-03-13 06:33 | NUR ---
Problems reprioritized. Patient report given, questions answered & plan of care reviewed with DREW Torres.
[2018-03-13] MEDS: insulin Lispro (HumaLOG) vial - multi-dose SQ SCH ×3 (07:01→18:00)
[2018-03-13] MEDS: aspirin 81mg tablet.DR PO SCH (07:39)
[2018-03-13] MEDS: metoprolol tartrate 12.5mg (1/2 tablet) PO SCH ×3 (07:40→19:19)
[2018-03-13] MEDS: pantoprazole 40mg Tablet.DR PO SCH (07:40)
[2018-03-13] MEDS: docusate sod 100mg capsule PO SCH ×2 (07:40→19:19)
[2018-03-13] MEDS: Protein Shake (high protein) 240ml (8oz) cup PO SCH ×2 (08:00→13:18)
[2018-03-13] MEDS: lactose-reduced food (Ensure High Protein) 237ml bottle PO SCH ×3 (08:00→18:09)
[2018-03-13] MEDS ORDERED: magnesium citrate 296ml oral solution PO ONE (10:15)
--- NOTE | 2018-03-13 18:30 | NUR ---
Patient in room ICU 2039. I have received report from Melissa RUSSELL and had the opportunity to ask questions and assume patient care.
--- NOTE | 2018-03-13 19:30 | NUR ---
Patient educated on flutter valve and IS. Patient verbalized understanding but states that he is tired and need a break. Patient also educated on sternal precautions because patient continues to use arms to push self up in bed. Educated patient numerous times patient. Will continue to monitor patient.
[2018-03-14] VITALS (17 sets, daily range): BP systolic 93–143; BP diastolic 51–73
[2018-03-14] MEDS: ipratropium/albuterol 3ml nebule NEB SCH ×4 (02:57→19:53)
[2018-03-14 05:07] LABS: ALBUMIN 2.6 G/DL (3.4-5.0); ANION GAP 12 (8-16); BLOOD UREA NITROGEN 19 MG/DL (7-18); BUN/CREATININE RATIO 18.6 (5.4-32.0); CALCIUM 7.6 MG/DL (8.5-10.1); CHLORIDE 103 MMOL/L (99-107); CREATININE 1.02 MG/DL (0.60-1.10); GLUCOSE 106 MG/DL (70-104); MAGNESIUM 2.3 MG/DL (1.5-2.4); PHOSPHORUS 2.6 MG/DL (2.3-4.5); POTASSIUM 3.6 MMOL/L (3.5-5.1); SODIUM 138 MMOL/L (135-145); TOTAL CARBON DIOXIDE 22.7 MMOL/L (24-32); eGFR 70 ML/MIN
[2018-03-14] MEDS: HYDROcodone/acetaminophen 10/325mg tab PO PRN (05:26)
[2018-03-14 05:30] LABS: BASOPHILS % (AUTO) 0.3 % (0-1); EOSINOPHILS # (AUTO) 0.2 X10'3 (0-0.9); EOSINOPHILS % (AUTO) 2.7 % (0-6); HEMATOCRIT 27.9 % (42.0-52.0); HEMOGLOBIN 9.4 g/dl (14.0-17.9); LYMPHOCYTES # (AUTO) 1.1 X10'3 (1.1-4.8); LYMPHOCYTES % (AUTO) 14.7 % (21-51); MEAN CORPUSCULAR HEMOGLOBIN 30.4 PG (27.0-31.0); MEAN CORPUSCULAR HGB CONC 33.6 % (33.0-36.5); MEAN CORPUSCULAR VOLUME 90.4 FL (78-98); MEAN PLATELET VOLUME 8.1 FL (7.4-10.4); MONOCYTES # (AUTO) 0.5 X10'3 (0-0.9); MONOCYTES % (AUTO) 6.6 % (2-12); NEUTROPHILS # (AUTO) 5.6 X10'3 (1.8-7.7); NEUTROPHILS % (AUTO) 75.7 % (42-75); PLATELET COUNT 178 X10'3 (140-440); RED BLOOD COUNT 3.08 X10'6 (4.70-6.10); RED CELL DISTRIBUTION WIDTH 15.6 % (11.5-14.5); WHITE BLOOD COUNT 7.4 X10'3 (4.5-11.0)
[2018-03-14] MEDS: potassium Cl 20mEq/100mL bag 100 ML IV PRN (05:51)
[2018-03-14] MEDS: magnesium 2GM in 50ml NS 50 ML IV PRN (05:51)
--- NOTE | 2018-03-14 06:00 | NUR ---
Patient in room ICU 2039. I have received report from DREW Dutton and had the opportunity to ask questions and assume patient care.
--- NOTE | 2018-03-14 06:26 | NUR ---
Problems reprioritized. Patient report given, questions answered & plan of care reviewed with Pantera RN.
[2018-03-14] MEDS: insulin regular, human 100 UNIT in normal saline 100ml IV soln 100 ML IV SCH ×2 (06:33)
[2018-03-14] MEDS: insulin Lispro (HumaLOG) vial - multi-dose SQ SCH (06:56)
[2018-03-14] MEDS: aspirin 81mg tablet.DR PO SCH (07:07)
[2018-03-14] MEDS: docusate sod 100mg capsule PO SCH ×2 (07:07→20:23)
[2018-03-14] MEDS: pantoprazole 40mg Tablet.DR PO SCH (07:07)
[2018-03-14] MEDS: metoprolol tartrate 12.5mg (1/2 tablet) PO SCH ×2 (07:08→20:23)
[2018-03-14] MEDS: lactose-reduced food (Ensure High Protein) 237ml bottle PO SCH ×3 (07:11→18:00)
[2018-03-14] MEDS ORDERED: magnesium Cl slow-release 64mg tablet PO PRN (07:35)
[2018-03-14] MEDS ORDERED: potassium Cl 20 mEq SR tablet PO PRN ×2 (07:35)
[2018-03-14] MEDS ORDERED: potassium Cl 40MEQ/NS 500ml 500 ML IV PRN ×2 (07:35)
[2018-03-14] MEDS ORDERED: magnesium 4gm in 100ml NS 100 ML IV PRN (07:35)
[2018-03-14] MEDS: magnesium Cl slow-release 64mg tablet PO SCH ×2 (08:00→20:00)
[2018-03-14] MEDS: K and/or MAG REPLACEMENT MC SCH (08:13)
[2018-03-14] MEDS: potassium Cl 20 mEq SR tablet PO SCH ×2 (08:24→20:23)
--- NOTE | 2018-03-14 10:00 | NUR ---
Problems reprioritized. Patient report given, questions answered & plan of care reviewed with DREW Valdovinos.
--- NOTE | 2018-03-14 10:05 | NUR ---
Patient in room MED 316. I have received report from DREW Mott ICU and had the opportunity to ask questions and assume patient care.
--- NOTE | 2018-03-14 10:45 | NUR ---
Patient arrived to the unit in w/c, patient is alert and oriented. He is in stable condition. Assessment and vitals completed.
--- NOTE | 2018-03-14 17:50 | NUR ---
Orienteer documentation: I have reviewed and agree with all interventions, assessments performed and documented by Shell RUSSELL.
--- NOTE | 2018-03-14 18:05 | NUR ---
Problems reprioritized. Patient report given, questions answered & plan of care reviewed with Jonathon RUSSELL.
[2018-03-14] MEDS: magnesium hydroxide 30ml (MOM) UD suspension PO PRN (20:23)
[2018-03-15] VITALS (8 sets, daily range): BP systolic 92–131; BP diastolic 54–70
[2018-03-15] MEDS: ipratropium/albuterol 3ml nebule NEB SCH ×4 (02:50→21:28)
[2018-03-15 06:19] LABS: BASOPHILS % (AUTO) 0.4 % (0-1); EOSINOPHILS # (AUTO) 0.4 X10'3 (0-0.9); HEMATOCRIT 28.4 % (42.0-52.0); HEMOGLOBIN 9.5 g/dl (14.0-17.9); LYMPHOCYTES # (AUTO) 1.5 X10'3 (1.1-4.8); LYMPHOCYTES % (AUTO) 19.6 % (21-51); MEAN CORPUSCULAR HEMOGLOBIN 30.2 PG (27.0-31.0); MEAN CORPUSCULAR HGB CONC 33.6 % (33.0-36.5); MEAN CORPUSCULAR VOLUME 89.8 FL (78-98); MEAN PLATELET VOLUME 7.4 FL (7.4-10.4); MONOCYTES # (AUTO) 0.6 X10'3 (0-0.9); MONOCYTES % (AUTO) 8.2 % (2-12); NEUTROPHILS # (AUTO) 5.1 X10'3 (1.8-7.7); NEUTROPHILS % (AUTO) 66.8 % (42-75); PLATELET COUNT 243 X10'3 (140-440); RED BLOOD COUNT 3.16 X10'6 (4.70-6.10); RED CELL DISTRIBUTION WIDTH 14.8 % (11.5-14.5); WHITE BLOOD COUNT 7.6 X10'3 (4.5-11.0)
[2018-03-15 06:28] LABS: ALBUMIN 2.6 G/DL (3.4-5.0); ANION GAP 11 (8-16); BLOOD UREA NITROGEN 20 MG/DL (7-18); CHLORIDE 103 MMOL/L (99-107); CREATININE 1.11 MG/DL (0.60-1.10); GLUCOSE 103 MG/DL (70-104); MAGNESIUM 2.4 MG/DL (1.5-2.4); POTASSIUM 4.6 MMOL/L (3.5-5.1); SODIUM 137 MMOL/L (135-145); TOTAL CARBON DIOXIDE 23.3 MMOL/L (24-32); eGFR 64 ML/MIN
--- NOTE | 2018-03-15 06:38 | NUR ---
Problems reprioritized. Patient report given, questions answered & plan of care reviewed with Luna RUSSELL.
--- NOTE | 2018-03-15 06:40 | NUR ---
Patient in room MED 316. I have received report from DREW ALLEN, and had the opportunity to ask questions and assume patient care.
[2018-03-15] MEDS: aspirin 81mg tablet.DR PO SCH (07:33)
[2018-03-15] MEDS: metoprolol tartrate 12.5mg (1/2 tablet) PO SCH ×2 (07:35→20:23)
[2018-03-15] MEDS: docusate sod 100mg capsule PO SCH ×2 (07:35→20:00)
[2018-03-15] MEDS: pantoprazole 40mg Tablet.DR PO SCH (07:35)
[2018-03-15] MEDS: magnesium hydroxide 30ml (MOM) UD suspension PO PRN (07:35)
[2018-03-15] MEDS: lactose-reduced food (Ensure High Protein) 237ml bottle PO SCH ×3 (08:00→18:00)
[2018-03-15] MEDS: K and/or MAG REPLACEMENT MC SCH (08:00)
[2018-03-15] MEDS: magnesium Cl slow-release 64mg tablet PO SCH ×2 (08:00→20:00)
[2018-03-15] MEDS: potassium Cl 20 mEq SR tablet PO SCH ×2 (08:00→20:00)
--- NOTE | 2018-03-15 11:19 | NUR ---
reassessment: Pt PO 25-50% NCS diet w/ ONS s/p CABG. No BM yet this admit on colace and MoM today. SUSAN d/w RN for additional bowel care per MD approval for constipation. Will continue to monitor. Recommendations: 1) Continue with no concentrated sweets diet 2) Ensure high protein TID 3) Encourage PO intake 4) routine bowel care 5) Wt per rx Addendum: 03/15/18 at [address] Amended: Links added.
[2018-03-15] MEDS ORDERED: magnesium citrate 296ml oral solution PO ONE (11:45)
--- NOTE | 2018-03-15 18:26 | NUR ---
Problems reprioritized. Patient report given, questions answered & plan of care reviewed with DREW ALLEN.
[2018-03-16 02:00] VITALS: BP 131/70
[2018-03-16] MEDS: ipratropium/albuterol 3ml nebule NEB SCH ×2 (02:32→08:23)
[2018-03-16 06:00] VITALS: BP 121/63
[2018-03-16 06:00] LABS: BASOPHILS % (AUTO) 0.6 % (0-1); EOSINOPHILS # (AUTO) 0.2 X10'3 (0-0.9); EOSINOPHILS % (AUTO) 2.6 % (0-6); HEMATOCRIT 29.5 % (42.0-52.0); HEMOGLOBIN 9.8 g/dl (14.0-17.9); LYMPHOCYTES % (AUTO) 13.1 % (21-51); MEAN CORPUSCULAR HEMOGLOBIN 30.6 PG (27.0-31.0); MEAN CORPUSCULAR HGB CONC 33.1 % (33.0-36.5); MEAN CORPUSCULAR VOLUME 92.2 FL (78-98); MEAN PLATELET VOLUME 7.3 FL (7.4-10.4); MONOCYTES # (AUTO) 0.6 X10'3 (0-0.9); MONOCYTES % (AUTO) 7.2 % (2-12); NEUTROPHILS # (AUTO) 6.2 X10'3 (1.8-7.7); NEUTROPHILS % (AUTO) 76.5 % (42-75); PLATELET COUNT 274 X10'3 (140-440); RED BLOOD COUNT 3.19 X10'6 (4.70-6.10); RED CELL DISTRIBUTION WIDTH 14.2 % (11.5-14.5)
[2018-03-16 06:14] LABS: ALBUMIN 2.7 G/DL (3.4-5.0); ANION GAP 10 (8-16); BLOOD UREA NITROGEN 20 MG/DL (7-18); BUN/CREATININE RATIO 18.5 (5.4-32.0); CALCIUM 8.1 MG/DL (8.5-10.1); CHLORIDE 103 MMOL/L (99-107); CREATININE 1.08 MG/DL (0.60-1.10); GLUCOSE 107 MG/DL (70-104); MAGNESIUM 2.6 MG/DL (1.5-2.4); POTASSIUM 4.7 MMOL/L (3.5-5.1); SODIUM 136 MMOL/L (135-145); TOTAL CARBON DIOXIDE 23.1 MMOL/L (24-32); eGFR 66 ML/MIN
--- NOTE | 2018-03-16 06:29 | NUR ---
Problems reprioritized. Patient report given, questions answered & plan of care reviewed with Belen RUSSELL.
--- NOTE | 2018-03-16 06:54 | NUR ---
Patient in room MED 316. I have received report from Jonathon RUSSELL and had the opportunity to ask questions and assume patient care.
[2018-03-16] MEDS: docusate sod 100mg capsule PO SCH (07:53)
[2018-03-16] MEDS: pantoprazole 40mg Tablet.DR PO SCH (07:53)
[2018-03-16] MEDS: aspirin 81mg tablet.DR PO SCH (07:53)
[2018-03-16] MEDS: metoprolol tartrate 12.5mg (1/2 tablet) PO SCH (07:54)
[2018-03-16] MEDS: magnesium Cl slow-release 64mg tablet PO SCH (07:55)
[2018-03-16] MEDS: lactose-reduced food (Ensure High Protein) 237ml bottle PO SCH (07:55)
[2018-03-16] MEDS: K and/or MAG REPLACEMENT MC SCH (07:55)
[2018-03-16] MEDS: potassium Cl 20 mEq SR tablet PO SCH (07:55)
[2018-03-16 08:00] VITALS: BP_SYST 121; BP_SYST 125; BP_SYST 95; BP_DIAS 57; BP_DIAS 74; BP_DIAS 75
--- NOTE | 2018-03-16 10:38 | NUR ---
Problems reprioritized. Patient report given, questions answered & plan of care reviewed with Kyung RUSSELL at [facility].
[2018-03-16 11:00] VITALS: BP 121/74
--- NOTE | 2018-03-16 11:40 | NUR ---
Patient was discharged in stable condition by Dr Ramirez for transfer to [facility]. Report was called to [facility] DREW Tracey. Patient's IV was removed with the cathter tip intact, there was minimal bleeding and clean gauze and tape were applied. His tele monitor was removed and returned to the tele furniture technician. Patient was picked up by [employer] and left via wheelchair accompanied by the doctors hospital personnel. His Ayesha was notified of the transfer and pickup time by RN.
== END 2018-03-16 11:40 | DRG 234 ==
LOC: ER 15:42 → ED HOLD 18:00 → EDBEDREQ 18:46 → CMPBEDREQ 19:27 → PCU 3S 19:30 → ICU 2S 03-10 11:55 → MED 3N 03-14 11:36
PROVIDERS: ADMIT Internal Medicine; ATTEND Thoracic Surgery (Cardiothoracic Vascular Surgery)
PROC: 4A023N7 Measurement of Cardiac Sampling and Pressure, Left Heart, Percutaneous Approach (ICD-10-PCS; 2018-03-08)
PROC: B2111ZZ Fluoroscopy of Multiple Coronary Arteries using Low Osmolar Contrast (ICD-10-PCS; 2018-03-08)
PROC: B2151ZZ Fluoroscopy of Left Heart using Low Osmolar Contrast (ICD-10-PCS; 2018-03-08)
PROC: B3121ZZ Fluoroscopy of Left Subclavian Artery using Low Osmolar Contrast (ICD-10-PCS; 2018-03-08)
PROC: B4101ZZ Fluoroscopy of Abdominal Aorta using Low Osmolar Contrast (ICD-10-PCS; 2018-03-08)
PROC: B41G1ZZ Fluoroscopy of Left Lower Extremity Arteries using Low Osmolar Contrast (ICD-10-PCS; 2018-03-08)
PROC: B41F1ZZ Fluoroscopy of Right Lower Extremity Arteries using Low Osmolar Contrast (ICD-10-PCS; 2018-03-08)
PROC: 021309W Bypass Coronary Artery, Four or More Arteries from Aorta with Autologous Venous Tissue, Open Approach (ICD-10-PCS; 2018-03-10)
PROC: 06BP4ZZ Excision of Right Saphenous Vein, Percutaneous Endoscopic Approach (ICD-10-PCS; 2018-03-10)
PROC: 5A1221Z Performance of Cardiac Output, Continuous (ICD-10-PCS; 2018-03-10)
PROC: B24BZZ4 Ultrasonography of Heart with Aorta, Transesophageal (ICD-10-PCS; 2018-03-10)
PROC: 02HV33Z Insertion of Infusion Device into Superior Vena Cava, Percutaneous Approach (ICD-10-PCS; 2018-03-10)
PROC: B548ZZA Ultrasonography of Superior Vena Cava, Guidance (ICD-10-PCS; 2018-03-10)
PROC: 02HQ32Z Insertion of Monitoring Device into Right Pulmonary Artery, Percutaneous Approach (ICD-10-PCS; 2018-03-10)
PROC: 4A133B3 Monitoring of Arterial Pressure, Pulmonary, Percutaneous Approach (ICD-10-PCS; 2018-03-10)
PROC: 4A1239Z Monitoring of Cardiac Output, Percutaneous Approach (ICD-10-PCS; 2018-03-10)
PROC: 02100Z9 Bypass Coronary Artery, One Artery from Left Internal Mammary, Open Approach (ICD-10-PCS; principal; 2018-03-10 06:43)
PROC: 30233N1 Transfusion of Nonautologous Red Blood Cells into Peripheral Vein, Percutaneous Approach (ICD-10-PCS; 2018-03-12)
DX: I21.4 Non-ST elevation (NSTEMI) myocardial infarction (principal); Q21.1 Atrial septal defect; I73.9 Peripheral vascular disease, unspecified; E78.5 Hyperlipidemia, unspecified; I12.9 Hypertensive chronic kidney disease with stage 1 through stage 4 chronic kidney disease, or unspecified chronic kidney disease; N18.3 Chronic kidney disease, stage 3 (moderate); I25.110 Atherosclerotic heart disease of native coronary artery with unstable angina pectoris; J44.9 Chronic obstructive pulmonary disease, unspecified; Z98.61 Coronary angioplasty status; Z79.899 Other long term (current) drug therapy; Z79.82 Long term (current) use of aspirin; Z79.02 Long term (current) use of antithrombotics/antiplatelets; Z82.49 Family history of ischemic heart disease and other diseases of the circulatory system; Z87.891 Personal history of nicotine dependence
CPT/HCPCS: 0232T; 93312; 93325; 93458; 96360; 99285; 36415; 36600; 71045; 71046; 80048; 80053; 80061; 82330; 82435; 82803; 82947; 82948; 83036; 83735; 83880; 84100; 84132; 84295; 84484; 85018; 85025; 85027; 85347; 85384; 85576; 85610; 85730; 86885; 86900; 86901; 86920; 87070; 93005; 93880; 93922; 93931; 93971; 94002; 94060; 94640; 94668; 94760; 97110; 97116; 97162; 97530; 99152; 99153; A4620; A6255; A6257; A6258; A6402; A6449; A7000; A7048; C1751; C1769; C9113; G0378; J0690; J1265; J1644; J1650; J1815; J1940; J2001; J2060; J2250; J2270; J2440; J2720; J2930; J3010; J3370; J3475; J3480; J3490; J7030; J7120; P9016; P9045; P9047; Q9967